=== PATIENT | male | born 1955 | race Caucasian/White ===

== ENCOUNTER 2016-05-24 11:09 | Day surgery (SDC) | payer OTHER ==
[~2016-05-24] VITALS: Ht 177.8 cm; Wt 91.0 kg
--- NOTE | 2016-05-24 07:33 | PCM.HPANE ---
Patient Data Surgeon Admitting Provider: Attending Provider:Rafi Pritchett MD Primary Care Physician:Mike Westbrook MD Other Provider:Lesvia Marchingham Anesthesia Reason for Visit Fhx Colon Cancer Ht/WT & BMI Body Mass Index Allergies Coded Allergies: No Known Drug Allergies (Verified Allergy, Unknown, 05/24/16) Past Anesthesia History Anesthesia History: Denies:: Abnormal Airway, Anesthesia Reactions, Difficult Intubation Diabetes History Hx Diabetes?: No MRSA MRSA: No Medications Hypertension Medication: Yes Home Meds Incl Beta [place]: Yes Reported Medications Multivitamin (Multi Vitamin Daily)1 Each Tablet1 Each PO DAILY 30 Days Ref 0 05/23/16 Metoprolol Succinate ER 25 Mg Tab.er.24h37.5 Mg PO DAILY Ref 0 07/10/15 Melatonin 5 Mg Tablet5 Mg PO DAILY PRN For Sleep 07/10/15 Losartan Potassium 25 Mg Tkkmou94 Mg PO BID 07/10/15 Gluc/Isreal-MSM#1/Vit C/Jean Carlos/Bor (Rgvlrfy-Zgcgk-ZRU Complex Cplt)1 Each Tablet1 Each PO BID 07/10/15 Garlic 1,000 Mg Capsule1,000 Mg PO DAILY 07/10/15 Colchicine 0.6 Mg Capsule0.6 Mg PO BID 07/10/15 Atorvastatin (Lipitor)40 Mg Lbbxjh65 Mg PO HS Ref 0 07/10/15 Aspirin 81 Mg Uiplcg34 Mg PO DAILY Ref 0 07/10/15 Amitriptyline 10 Mg Dgrirr72 Mg PO HS Ref 0 07/10/15 Allopurinol 300 Mg Xtrryo036 Mg PO BID Ref 0 07/10/15 Spironolactone 25 Mg Aopjrh24 Mg PO DAILY #30 TABLET Ref 0 07/10/15 Niacin ER 500 Mg Jteswa791 Mg PO QAM 07/10/15 [place]-3 Fatty Acids/Fish Oil (Fish Oil 1,000 mg Softgel)1 Each Capsule2 Each PO DAILY 07/10/15 Discontinued Reported Medications Omeprazole 20 Mg Capsule.dr20 Mg PO DAILY Ref 0 05/23/16 Multivits-Minerals/Fa/Lycopene (One Daily For Men Tablet)1 Each Tablet1 Each PO DAILY 06/13/13 Discontinued Scripts Cephalexin 500 Mg Oyjrxwz272 Mg PO BID #14 CAPSULE Ref 0 Prov:David Hubbard PA-C 07/14/15 Hydrocodone-Acetaminophen 5-325 mg 1 Each Tablet1-2 Tablet PO Q4H PRN For Moderate Pain #20 TABLET Ref 0 Prov:Stevie David Clark PA-C 07/14/15 History History of ENT Problems?: No HEENT History: Denies:: Cataracts Dysphagia Sinus Problem Hx of Heart Problems?: No Cardiovascular History: Positive for:: Cardiac Surgery (placed today) Chest Pain Irregular Heartbeat Denies:: Congestive Heart Failure Edema Heart Murmur Hypertension Pacemaker Thrombophlebitis Hx of Respiratory Problem?: No Respiratory History: Positive for:: Pneumonia Denies:: Asthma COPD Chest Surgery Dyspnea Emphysema Hemoptysis Tuberculosis Hx Neurologic Problems?: No Neurological History: Positive for:: Headaches Denies:: Alzheimer's Disease CVA Dementia Dizziness Parkinson's Disease Seizures Hx of GI Problems?: No Gastrointestinal History: Denies:: Gastrointestinal Bleeding Heartburn Hepatitis Hiatal Hernia Rectal Bleeding Hx of Problems?: No Genitourinary History: Denies:: HX of Hemodialysis Kidney Stones Urinary Tract Infection HX of Peritoneal Dialysis: No Male Hx: Denies:: Prostate Problems Scrotal Mass Testicular Surgery Hx Musculoskeletal Problems?: No Musculoskeletal History: Positive for:: Joint Replacement Denies:: Back Injury Musculoskeletal Trauma Hx of Psycho/Social Problems?: No Hx Surgeries?: Yes (rectum surgery) Hx Any Other Health Problems?: No Other History: Positive for:: Hospitalization (pneumonia) Denies:: Cancer Endocrine Disease Thyroid Disease History Blood Transfusions: Denies:: Blood Transfuse Reaction Blood Transfusions Hx Diabetes: No Hx Alcohol Use: Yes (occasional)Hx Substance Use: No Smoking Status: Never Smoker Have You Smoked inLast 12 mo: No Stop/Bang Treated for Sleep Apnea?: No Do You Have a CPAP Machine?: No ENZO Risk Assessment: Low Risk, <3 Yes Risk Assessment Category Category 1A: Patient has history of documented sleep apnea, and HAS NOT received any narcotic, sedative or anesthesia administration during this stay. Category 1B: Patient has history of documented sleep apnea, and HAS received any narcotic , sedative or anesthesia administration during this stay Category 2: Patient has SUSPECTED Obstructive Sleep Apnea, and HAS received any narcotic , sedative or anesthesia administration during this stay. Category 3: Patient has SUSPECTED Obstructive Sleep Apnea and HAS NOT received narcotic, sedative or anesthesia administration during this stay. Category 4: Outpatient in Procedural Areas with known sleep apnea or who screen positive for High Risk via the STOP/BANG questionnaire. Exam Exam General Appearance: Alert, Oriented X3, Cooperative, No Acute Distress HEENT/AIRWAY: MP 2 Lungs: Clear to Auscultation, Normal Air Movement Heart: Exam Unremarkable, Regular Rate/Rhythm, No Murmurs/Rubs/Gallops Plan Impression Patient chart reviewed, patient interviewed and anesthestic plan with risks, benefits, and alternatives discussed, and informed consent obtained. ASA Physical Status: ASA2 Mod Systemic Disease Anesthetic Plan: MAC Bene/Risks/Altern/Consents: Yes HP Complete Prior to Induction: Yes Alberto Magaña MD May 24, 2016 07:33 Alberto Magaña MD May 24, 2016 07:33
[~2016-05-24 11:09] MED LIST: ALLO300T2 PO; AMIT10TA6 PO; ASPI-973 PO; CEPH500C PO; COLC0.6C3 PO; GARL10002 PO; GLUC-91 PO; HYDR-4003 PO; LIP40 PO; LOSA25TA21 PO; Lactated Ringer's 1,000 ML IV ONE; MELA5TAB14 PO; METO25TA99 PO; MULT-1018 PO; NIAC-9 PO; OMEG1CAP15 PO; OMEP20CA11 PO; SPIR25TA3 PO
[2016-05-24 11:33] VITALS: BP 128/85; PULSE 107; RESP 14; O2SAT 96
[2016-05-24] MEDS ORDERED: Lactated Ringer's 1,000 ML IV SCH (12:18)
[2016-05-24] MEDS ORDERED: Ondansetron 2 mg/mL 2 mL Inj IVPUSH PRN (12:20)
[2016-05-24] MEDS ORDERED: MetoCLOpramide 5 mg/mL 2 mL Inj IVPUSH PRN (12:20)
[2016-05-24 13:22] VITALS: BP 100/74; PULSE 17; RESP 17; O2SAT 96
[2016-05-24 13:32] VITALS: BP 105/79; PULSE 97; RESP 17; O2SAT 92
--- NOTE | 2016-05-24 13:32 | PCM.ANEP1 ---
Post Anesthesia Phase 1 PACU Phase 1 Assessment Vital Signs Vital Signs Date Time Temp Pulse Resp B/P Pulse Ox O2 Delivery O2 Flow Rate FiO2 05/24/16 13:22 17 17 100/74 96 Room Air 05/24/16 11:33 36.4 107 14 128/85 96 Room Air Anesthetic Administered: MAC Level of Alertness: Awake, talking GARCIA's with Equal Strength: Yes Pain: No Nausea or Vomiting: No Oxygen Delivery: Nasal Cannula Lungs: Clear to Auscultation, Normal Air Movement Dermatome Level: Full Sensation Alberto Magaña MD May 24, 2016 13:32
--- NOTE | 2016-05-24 13:32 | PCM.ANEP2 ---
Post Anesthesia Evaluation ASA/CMS Post Anesthesia VS in Patient's Normal Range?: Yes Resp Stable; Airway Patent?: Yes CV Function & Hydration Stable: Yes Mental Status Recovered?: Yes Pain control Satisfactory?: Yes N/V Control Satisfactory?: Yes Alberto Magaña MD May 24, 2016 13:32
[2016-05-24 13:42] VITALS: BP 110/73; PULSE 93; RESP 17; O2SAT 92
--- NOTE | 2016-05-24 14:30 | ENDO ---
[address] [address] ENDOSCOPY PROCEDURE PATIENT: IZABELA DAVEY : 1955 MR#: [id number] ADMIT: 05/24/2016 JOB ID: [id number] DATE: 05/24/2016 PRIMARY PROVIDER: Mike Westbrook MD PROCEDURE: Colonoscopy with hot snare polypectomy and hot forceps polypectomy. INDICATIONS: A 61-year-old male with a family history of possible colon cancer. EQUIPMENT: PCF H 190 DL SEDATION: Monitored anesthesia as provided by Dr. Alberto Magaña. COMPLICATIONS: None identified. BOWEL PREPARATION: Fair, adequate examination. PROCEDURAL INFORMATION: After the risks and benefits were explained, written and verbal informed consent was obtained. The patient was brought into the endoscopy suite and placed into the left lateral decubitus position. Sedation was achieved using the above stated medications with the addition of oxygen via nasal cannula. A digital rectal examination was accomplished. No significant pathology identified apart from some minimal internal hemorrhoids. The scope was introduced into the rectum and advanced under direct visualization to the level of the cecum, as identified by the appendiceal orifice and ileocecal valve. The scope was slowly withdrawn to carefully examine the mucosa for any defects or lesions. Retroflexed views were accomplished in the rectum. The colon was decompressed. The scope removed from the patient who tolerated the procedure well. During application of electrocautery, a magnet was placed over the patient's internal defibrillator. FINDINGS: There was some diverticulosis in the left colon. There were two sessile polyps in the descending colon measuring between 6 and 7 mm each removed with hot snare. There was a third polyp in the rectum that was perhaps 5 mm, removed with hot snare. This did not all come off with a hot snare and we had to complete the excision using hot forceps. Retroflexed views were otherwise unremarkable from within the rectum. ENDOSCOPIC DIAGNOSES: 1. Colon polyps. 2. Diverticulosis. 3. Hemorrhoids. RECOMMENDATIONS: 1. Await histopathology. 2. If adenomatous features are confirmed, repeat colonoscopy in three years.
--- NOTE | 2016-05-25 13:38 | PATH ---
SURGICAL PATHOLOGY Attending Physician:Felix Antoine CASE STATUS: Signed Out PATIENT NAME: IZABELA DAEVY PID: [id number] : 1955 DATE COLLECTED:05/24/2016 23:16 SPECIMEN: 1: Colon, Biopsy 2: Rectum, Biopsy CLINICAL HISTORY: 1). DESCENDING POLYPS X2 2). RECTAL POLYP X1 FINAL DIAGNOSIS: 1.DESCENDING COLON POLYPS: TUBULAR ADENOMA INVOLVING MULTIPLE BIOPSY FRAGMENTS. 2.RECTAL POLYP: HYPERPLASTIC POLYP. ICD10 CODE D12.4 GROSS DESCRIPTION: The specimen is received in two formalin filled containers labeled with the patient's name. 1). The specimen is sublabeled "descending polyps" and consists of multiple portions of tissue which aggregate to 0.5 x 0.3 x 0.2 CM. The specimen is entirely submitted in cassette 1A. 2). The specimen is sublabeled "rectal polyp" and consists of 2 portions of tissue which aggregate to 0.2 x 0.2 x 0.1 CM. The specimen is entirely submitted in cassette 2A. 05/25/2016 [facility] MICRO DESCRIPTION: See diagnosis. ICD-9 CODES: CPT CODES: 1: 16464 2: 30109 Electronically Signed Out Rafi Lind MD [facility] [address] [place] [address] Technical component performed at [facility], [facility] [address], [address]
== END 2016-05-24 23:59 | disposition home or self-care (01) ==
LOC: END 11:09
PROVIDERS: ATTEND Internal Medicine Gastroenterology
DX: Z12.11 Encounter for screening for malignant neoplasm of colon (principal); D12.4 Benign neoplasm of descending colon; K62.1 Rectal polyp; K57.30 Diverticulosis of large intestine without perforation or abscess without bleeding; K64.8 Other hemorrhoids; Z80.8 Family history of malignant neoplasm of other organs or systems; I11.0 Hypertensive heart disease with heart failure; G47.30 Sleep apnea, unspecified; I42.9 Cardiomyopathy, unspecified; I50.9 Heart failure, unspecified; E78.5 Hyperlipidemia, unspecified; Z95.810 Presence of automatic (implantable) cardiac defibrillator; Z79.82 Long term (current) use of aspirin
CPT/HCPCS: 45384; 45385; J7120